=== PATIENT | male | born 1930 | race Caucasian/White ===

== ENCOUNTER 2018-03-09 10:39 | Emergency (ER) | payer OTHER ==
[~2018-03-09] VITALS: Ht 162.6 cm; Wt 75.7 kg
[~2018-03-09 10:39] MED LIST: AMLODIPINE BESYL5 MG PO; ANT12.5 PO; BICALUTAMIDE50 MG PO; CLINDAMYCIN HC300 MG PO; CLOPIDOGREL75 M1 PO; CLOPIDOGREL75 MG PO; COLACE100 MG PO; FINASTERIDE5 M1 PO; FLA500 PO; GABAPENTIN100 M1 PO; GABAPENTIN100 MG PO; LAC PO; LIPI10 PO; MELOXICAM15 MG PO; NEU300 PO; NORCO1 TA1; OXYBUTYNIN CHLOR5 MG PO; PROS5 PO; TES100 PO; TRIAMTERENE/H37.5 MG PO; TYLENOL WITH CO1 TA2 PO; ZES10 PO
[2018-03-09 10:41] VITALS: Ht 162.6 cm; Wt 75.7 kg
[2018-03-09 11:14] LABS: BASOPHIL % 0.4 % (0-2); PLATELET COUNT 339 x10^3mcL (130-400)
[2018-03-09 11:15] LABS: RED CELL DISTRIBUTION WIDTH 14.9 % (11.5-14.5)
[2018-03-09 11:46] LABS: CALCIUM 8.8 mg/dL (8.5-10.1); CARBON DIOXIDE 25.2 mmol/L (21-32); CHLORIDE SERUM 104 mmol/L (98-107); CREATININE SERUM 1.1 mg/dL (0.7-1.3); GLUCOSE SERUM 107 mg/dL (74-106); POTASSIUM SERUM 3.8 mmol/L (3.5-5.1); SODIUM SERUM 139 mmol/L (136-145)
[2018-03-09 11:51] LABS: ALBUMIN 3.4 g/dL (3.4-5.0); ALKALINE PHOSPHATASE 118 U/L (46-116); ALT/SGPT 17 U/L (16-63); AST/SGOT 15 U/L (15-37); BILIRUBIN TOTAL 1.01 mg/dL (0.20-1.00); TOTAL PROTEIN, SERUM 6.9 g/dL (6.4-8.2)
[2018-03-09 11:54] LABS: UA SPECIFIC GRAVITY >=1.030 (1.005-1.035); microscopic required? YES; urine erythrocyte 2+ (NEGATIVE)
[2018-03-09 13:38] VITALS: BP 132/73
== END 2018-03-09 13:38 | disposition home or self-care (01) ==
LOC: ED 10:39
PROVIDERS: Emergency Medicine
DX: R53.1 Weakness (principal); I10 Essential (primary) hypertension; E78.00 Pure hypercholesterolemia, unspecified
CPT/HCPCS: 83880; J7030; Q0092

== ENCOUNTER 2018-06-04 20:07 | Emergency (ER) | payer OTHER ==
[~2018-06-04] VITALS: Ht 165.1 cm; Wt 72.6 kg
[2018-06-04 22:10] VITALS: BP 155/71
== END 2018-06-04 22:10 | disposition home or self-care (01) ==
LOC: ED 20:07
DX: M23.8X2 Other internal derangements of left knee (principal); E78.00 Pure hypercholesterolemia, unspecified; I10 Essential (primary) hypertension; Z89.022 Acquired absence of left finger(s); Z98.890 Other specified postprocedural states
CPT/HCPCS: J1885

== ENCOUNTER 2019-03-01 11:15 | Emergency (ER) | payer OTHER ==
[~2019-03-01] VITALS: Ht 157.5 cm; Wt 71.2 kg
[2019-03-01 11:18] VITALS: Ht 157.5 cm; Wt 71.2 kg
[2019-03-01 12:29] VITALS: BP 145/91
== END 2019-03-01 12:29 | disposition home or self-care (01) ==
LOC: ED 11:15
DX: R31.9 Hematuria, unspecified (principal); R11.0 Nausea; R10.30 Lower abdominal pain, unspecified; R30.0 Dysuria; I10 Essential (primary) hypertension; Z89.022 Acquired absence of left finger(s)
CPT/HCPCS: J1885

== ENCOUNTER 2019-06-12 06:16 | Inpatient (IN) | payer OTHER ==
[2019-06-05 09:01] LABS: PLATELET COUNT 242 x10^3mcL (130-400)
[2019-06-05 09:02] LABS: RED CELL DISTRIBUTION WIDTH 16.1 % (11.5-14.5)
[2019-06-05 09:26] LABS: CALCIUM 8.8 mg/dL (8.5-10.1); CARBON DIOXIDE 28.5 mmol/L (21-32); CHLORIDE SERUM 104 mmol/L (98-107); GLUCOSE SERUM 96 mg/dL (74-106); POTASSIUM SERUM 4.6 mmol/L (3.5-5.1); SODIUM SERUM 139 mmol/L (136-145)
[2019-06-05 12:55] LABS: UA SPECIFIC GRAVITY 1.025 (1.005-1.035); microscopic required? YES; urine erythrocyte TRACE (NEGATIVE)
[~2019-06-12] VITALS: Ht 165.1 cm; Wt 74.8 kg
[2019-06-12 06:55] VITALS: BP 148/72
[2019-06-12] MEDS ORDERED: FINASTERIDE5 M1 PO (10:55)
[2019-06-12] MEDS ORDERED: NEU300 PO (10:55)
[2019-06-12] MEDS ORDERED: LEVOTHYROXIN0.025 M2 PO (10:56)
[2019-06-12] MEDS ORDERED: ZESTRIL10 MG PO (10:56)
[2019-06-12] MEDS ORDERED: ALENDRONATE SOD70 M3 PO (10:57)
[2019-06-12 16:10] VITALS: BP 136/68
[2019-06-12 18:05] VITALS: BP 154/87
[2019-06-12 19:29] VITALS: BP 158/60
[2019-06-13 04:44] VITALS: BP 141/51
[2019-06-13 06:31] LABS: CALCIUM 7.9 mg/dL (8.5-10.1); CARBON DIOXIDE 27.5 mmol/L (21-32); CHLORIDE SERUM 103 mmol/L (98-107); CREATININE SERUM 0.9 mg/dL (0.7-1.3); GLUCOSE SERUM 180 mg/dL (74-106); SODIUM SERUM 138 mmol/L (136-145)
[2019-06-13 06:35] LABS: PLATELET COUNT 194 x10^3mcL (130-400)
[2019-06-13 07:44] LABS: BASOPHIL % 0 % (0-2); RED CELL DISTRIBUTION WIDTH 15.6 % (11.5-14.5)
[2019-06-13 09:29] VITALS: BP 131/85
[2019-06-13 16:19] VITALS: BP 154/59
[2019-06-13 20:51] VITALS: BP 138/64
[2019-06-14 05:27] VITALS: BP 141/53
[2019-06-14 08:40] VITALS: BP 146/56
[2019-06-14 16:48] VITALS: BP 147/50
[2019-06-14 18:58] VITALS: BP 147/50
[2019-06-14 21:07] VITALS: BP 141/56
[2019-06-15 05:17] VITALS: BP 145/60
[2019-06-15 09:20] VITALS: BP 146/62
== END 2019-06-15 12:37 | DRG 470 ==
LOC: MU 06:16
PROVIDERS: ADMIT Neuromusculoskeletal Medicine, Sports Medicine
PROC: 0SRD0J9 Replacement of Left Knee Joint with Synthetic Substitute, Cemented, Open Approach (ICD-10-PCS; principal; 2019-06-12 07:30)
DX: M17.12 Unilateral primary osteoarthritis, left knee (principal); I10 Essential (primary) hypertension; E03.9 Hypothyroidism, unspecified; E78.00 Pure hypercholesterolemia, unspecified; M81.0 Age-related osteoporosis without current pathological fracture
CPT/HCPCS: 90658; 90732; 97110-GP; 97116-GP; 97530-GP; C1713; C1776; G0378; J0690; J1170; J1650; J1885; J2250; J2405; J3010; J3490; J7120